=== PATIENT | male | born 1940 | race Caucasian/White ===

== ENCOUNTER 2024-06-25 06:50 | Day surgery (SDC) | payer MEDICARE, OTHER, SELFPAY ==
[2024-06-25 11:12] VITALS: BMI 27.1
[2024-06-25 11:14] VITALS: BP 139/80; BMI 27.1
[2024-06-25 15:19] VITALS: BP 120/77
[2024-06-25 15:30] VITALS: BP 124/82
[2024-06-25 15:45] VITALS: BP 132/78
== END 2024-06-25 15:55 | disposition home or self-care (01) ==
LOC: GI 06:50
PROVIDERS: ATTENDING PHYSICIAN Internal Medicine Gastroenterology
DX: K86.2 Cyst of pancreas (principal); D13.6 Benign neoplasm of pancreas; K80.20 Calculus of gallbladder without cholecystitis without obstruction; D49.0 Neoplasm of unspecified behavior of digestive system; R93.3 Abnormal findings on diagnostic imaging of other parts of digestive tract
CPT/HCPCS: 43238; 88172; 88173; 88305

== ENCOUNTER → 2024-07-25 15:28 | Outpatient (REF) | payer MEDICARE, OTHER, SELFPAY | LOC: REG 15:28 | PROVIDERS: ATTENDING PHYSICIAN Internal Medicine Gastroenterology | DX: K52.9 Noninfective gastroenteritis and colitis, unspecified (principal) | CPT/HCPCS: 82653 ==